=== PATIENT | male | born 1965 | race Caucasian/White ===

== ENCOUNTER 2016-12-19 10:40 | Emergency (ER) | payer OTHER ==
[2016-12-19] MEDS ORDERED: MORPHINE SULFATE 4 MG/ML SYRINGE IM STA (12:21)
--- NOTE | 2016-12-19 12:36 | XR ---
EXAM TYPE: LUMBAR SPINE X RAY SERIES COMPARISON: None HISTORY: Lower back pain FINDINGS: Alignment is anatomic. The pedicles are intact. The transverse processes are intact. There is no s pondylolysis or spondylolisthesis. Hypertrophic spurs are seen at multiple levels. IMPRESSION: 1. Hypertrophic changes and facet arthropathy L4-S1. Consider MRI follow-up.
--- NOTE | 2016-12-19 12:50 | ED ---
General Adult HPI - General Chief complaint: Back Pain/Injury Stated complaint: back injury - [facility] Time Seen by Provider: 12/19/16 11:58 Source: patient, RN notes reviewed Mode of arrival: ambulatory - History of Present Illness Initial comments: Patient is a 51-year-old male with significant past medical history for low back pain, who presents emergency room today with chief complaint of increased lower back pain after an injury at work 2 days ago. He does admit that he was moving a fridge over threshold felt a pop in his lower back. He does admit that he's had some pain radiate down the left leg. He states goes down to the mid calf area. Patient denies any bowel or bladder incontinence or retention. Denies any saddle anesthesia. Does admit the pain is worse with movements. He states been using ibuprofen at home is also had one Lonsdale and with little relief of the symptoms. Patient denies any other complaints or symptoms at this time. Patient denies any recent fever, chills, shortness of breath, chest pain, abdominal pain, nausea or vomiting, numbness or tingling, dysuria or hematuria, constipation or diarrhea, headaches or visual changes, or any other complaints. - Related Data Home Medications Medication Instructions Recorded Confirmed Ibuprofen [Motrin] 800 mg PO TID PRN 12/19/16 12/19/16 Lisinopril [Zestril] 10 mg PO DAILY 12/19/16 12/19/16 Lisinopril [Zestril] 20 mg PO DAILY 12/19/16 12/19/16 Lonsdale (Unknown Dose) 1 tab PO TID PRN 12/19/16 12/19/16 Previous Rx's Medication Instructions Recorded Cyclobenzaprine [Flexeril] 10 mg PO TID #20 tab 12/19/16 Dexamethasone 0.75 mg PO DIRECTED #12 tablet 12/19/16 Hydrocodone/Acetaminophen [Lonsdale 1 each PO Q6HR PRN #20 tab 12/19/16 5-325] Ibuprofen [Motrin] 800 mg PO Q6HR PRN #30 tab 12/19/16 Allergies Allergy/AdvReac Type Severity Reaction Status Date / Time tide detergent Allergy Unknown Uncoded 12/19/16 11:03 Review of Systems ROS Statement: Those systems with pertinent positive or pertinent negative responses have been documented in the HPI. ROS Other: All systems not noted in ROS Statement are negative. Past Medical History Additional Past Medical History / Comment(s): pt states he had simialr back pain in 2012 and was treated by Dr Donohue. History of Any Multi-Drug Resistant Organisms: None Reported Additional Past Surgical History / Comment(s): kidney stones removed. Past Psychological History: No Psychological Hx Reported Smoking Status: Current every day smoker Past Alcohol Use History: None Reported Past Drug Use History: Marijuana General Exam - General Exam Comments Initial Comments: General: The patient is awake and alert, in no distress, and does not appear acutely ill. Eye: Pupils are equal, round and reactive to light, extra-ocular movements are intact. No nystagmus. There is normal conjunctiva bilaterally. No signs of icterus. Ears, nose, mouth and throat: There are moist mucous membranes and no oral lesions. Neck: The neck is supple, there is no tenderness or JVD. Cardiovascular: There is a regular rate and rhythm. No murmur, rub or gallop is appreciated. Respiratory: Lungs are clear to auscultation, respirations are non-labored, breath sounds are equal. No wheezes, stridor, rales, or rhonchi. Musculoskeletal: Normal appearance of his back. No step-offs deformity is appreciated thoracic or lumbar spine. Mild tenderness beginning at L3 down to L5 of the lumbar spine. Increased paravertebral tenderness on the left side. Strength 5/5. Sensation intact. Pulses equal bilaterally 2+. Neurological: A&O x 3. CN II-XII intact, There are no obvious motor or sensory deficits. Coordination appears grossly intact. Speech is normal. Skin: Skin is warm and dry and no rashes or lesions are noted. Psychiatric: Cooperative, appropriate mood & affect, normal judgment. Course Vital Signs 12/19/16 10:56 Temperature 97 F L Pulse Rate 105 H Respiratory 20 Rate Blood Pressure 131/75 O2 Sat by Pulse 100 Oximetry Medical Decision Making - Medical Decision Making X-ray reviewed shows no acute fracture or dislocation. Results were discussed with the patient. Patient is advised to follow-up with the family doctor for further evaluation possible MRI of his back. Patient will be given pain medication along with muscle laxer and steroid Dosepak for her symptoms. Advised return if any symptoms increase or worsen or for any other concerns. Disposition Clinical Impression: Acute low back pain Disposition: HOME SELF-CARE Condition: Good Instructions: Acute Low Back Pain (ED) Additional Instructions: Please follow-up the family doctor over the next 2-5 days. Please discuss options of MRI. Please use medications as prescribed. Be aware that they may make you drowsy. Please return here to the emergency room if any symptoms increase or worsen or for any other concerns. Prescriptions: Cyclobenzaprine [Flexeril] 10 mg PO TID #20 tab Dexamethasone 0.75 mg PO DIRECTED #12 tablet Hydrocodone/Acetaminophen [Lonsdale 5-325] 1 each PO Q6HR PRN #20 tab PRN Reason: Pain Ibuprofen [Motrin] 800 mg PO Q6HR PRN #30 tab PRN Reason: Pain Time of Disposition: 12:49
[2016-12-19 13:13] VITALS: BP 146/88; PULSE 101; RESP 18; TEMP 98.7
== END 2016-12-19 13:25 | disposition home or self-care (01) ==
LOC: EC 10:40
DX: M54.5 Low back pain (principal); X50.0XXA Overexertion from strenuous movement or load, initial encounter; Y99.0 Civilian activity done for income or pay; Z79.899 Other long term (current) drug therapy; Z91.048 Other nonmedicinal substance allergy status; F17.200 Nicotine dependence, unspecified, uncomplicated
CPT/HCPCS: 72100; 96372; 99283; J2270

== ENCOUNTER → 2017-01-09 | Outpatient (CLI) | payer MEDICAID, OTHER ==
--- NOTE | 2017-01-09 16:45 | US ---
EXAMINATION TYPE: US kidneys/renal and bladder DATE OF EXAM: 01/09/2017 4:30 PM COMPARISON: NONE CLINICAL HISTORY: R33.9 Urine Retention. Back injury 12/13/2016 then noted hematuria; prior renal sto yoan left renal with surgery for removal of them. EXAM MEASUREMENTS: Right Kidney: 12.9 x 7.1 x 5.7 cm Left Kidney: 13.8 x 5.4 x 7.2 cm Post Void Residual Volume: 0 ml Findings: Right Kidney: couple of renal cysts noted with largest at lower cortex = 1.3 x1.3 x 1.3cm; mid pole r enal calcification = 0.4 x 0.4 x 0.2cm Left Kidney: No hydronephrosis or masses seen Bladder: wnl Bilateral Jets seen: yes Normal Post Void Residual: Yes IMPRESSION: 1. Nonobstructing renal calculus right kidney. 2. Cystic changes right kidney.
== END | disposition home or self-care (01) ==
LOC: RADUSWWP 16:00
PROVIDERS: ATTEND Family Medicine
DX: N20.0 Calculus of kidney (principal); N28.1 Cyst of kidney, acquired
CPT/HCPCS: 76770

== ENCOUNTER → 2017-01-31 | Outpatient (CLI) | payer MEDICAID ==
[2017-01-31 18:24] LABS: Blood Urea Nitrogen 13 mg/dL (9-20); Non-African American GFR(MDRD) >60 (>60 ml/min/1.73 sqM)
--- NOTE | 2017-02-01 08:28 | CT ---
EXAMINATION TYPE: CT urogram wo/w con DATE OF EXAM: 01/31/2017 7:31 PM COMPARISON: Renal ultrasound January 09, 2017. HISTORY: PT states of hematuria, left side abd pain, and difficulty urinating. CT DLP: 3572 mGycm, Automated Exposure Control for Dose Reduction was Utilized. CONTRAST: CT scan of the abdomen and pelvis is performed without oral and without and with IV Contrast, patient injected with 100 mL of Omnipaque 300. Urogram protocol with Three-D reconstructed images created on independent workstation and reviewed. FINDINGS: KUB: Noncontrast images show 2 renal calculi in the lower pole right kidney on coronal images 107 and 92 respectively, latter being larger measuring 5 mm on long axis. No left-sided renal calculi are se en. Postcontrast images show symmetric cortical medullary uptake and excretion from both kidneys with out evidence of hydronephrosis bilaterally. There are 2-3 simple appearing cysts scattered throughout the right kidney. Largest measures 1.7 cm on long axis on image 106 series 10. No suspicious solid o r cystic mass is identified in either kidney. There is satisfactory opacification of bilateral ureters on delayed images though there is some delay in left ureter opacification. There is asymmetric mild left-sided hydroureter with mild surrounding perinephric fat stranding. In the distal left ureter there is more focal hyperdensity measuring 4 mm on axial image 76 could reflect incomplete contrast opacification of the ureter but focal calculus is felt more likely, length of stone is 7 mm on coronal image 105. Some delayed contrast visualization of the left ureter is noted favoring obstructing calculus. Mild fat stranding along course of the pro ximal to mid ureter is presumed product of obstructing stone, infection felt less likely but should b e excluded clinically. Urinary bladder shows satisfactory distention and midline of pelvis without ab normal intraluminal mass or wall thickening seen. LUNG BASES: No significant abnormality is appreciated. LIVER/GB: A noncontrast images liver is diffusely low dense consistent with fatty infiltration PANCREAS: No significant abnormality is seen. SPLEEN: No significant abnormality is seen. ADRENALS: No significant abnormality is seen. BOWEL: Normal-appearing appendix is seen from the cecum. PROSTATE/SEMINAL VESICLES: No gross abnormality seen. LYMPH NODES: No greater than 1cm abdominal or pelvic lymph nodes are appreciated. There are prominen t but subcentimeter retroperitoneal lymph nodes. OSSEOUS STRUCTURES: Some multilevel spurring in the thoracolumbar spine is present. OTHER: No significant additional abnormality is seen. IMPRESSION: Nonobstructing right-sided renal calculi and simple appearing cyst right kidney are confi rmed. There is strongly suspected 7 mm calculus distal left ureter not causing delayed excretion but believed causing asymmetric mild left-sided hydroureter as detailed above.
== END ==
LOC: RADCTMAIN 17:43
PROVIDERS: ATTEND Urology
DX: N20.0 Calculus of kidney (principal)
CPT/HCPCS: 82565; 84520; 74178; 36415; 74400; Q9967

== ENCOUNTER → 2017-02-15 | Outpatient (CLI) | payer MEDICAID ==
[2017-02-15 16:38] LABS: EKG EKG PERFORMED
[2017-02-15 17:00] LABS: Basophils # (A) 0.1 k/uL (0-0.2); Basophils % (A) 1 %; CH 30.9; CHCM 34.5; Eosinophils # (A) 0.5 k/uL (0-0.7); Eosinophils % (A) 3 %; HCT 54.1 % (39.0-53.0); HDW 2.78; HGB 18.4 gm/dL (13.0-17.5); Luc # (Auto) 0.29; Luc % (Auto) 2; Lymphocytes # (A) 2.7 k/uL (1.0-4.8); Lymphocytes % (A) 20 %; MCH 30.6 pg (25.0-35.0); MCV 90.1 fL (80.0-100.0); Mean Platelet Volume 7.7; Monocytes # (A) 0.8 k/uL (0-1.0); Monocytes % (A) 6 %; Neutrophils # (A) 9.1 k/uL (1.3-7.7); Neutrophils % (A) 67 %; RDW 13.2 % (11.5-15.5); WBC 13.5 k/uL (3.8-10.6); WBC (Perox) 13.97
[2017-02-15 17:10] LABS: INR 1.1 (<1.1); Partial Thromboplastin Time 23.5 sec (22.0-30.0); Prothrombin Time 10.8 sec (9.0-12.0)
[2017-02-15 17:14] LABS: Anion Gap 6 mmol/L; Blood Urea Nitrogen 23 mg/dL (9-20); Calcium 8.9 mg/dL (8.4-10.2); Carbon Dioxide 31 mmol/L (22-30); Chloride 103 mmol/L (98-107); Glucose 111 mg/dL (74-99); Non-African American GFR(MDRD) >60 (>60 ml/min/1.73 sqM); Potassium 4.3 mmol/L (3.5-5.1); Sodium 140 mmol/L (137-145)
== END ==
LOC: LABPAT 16:30
PROVIDERS: ATTEND Physician Assistant
DX: Z01.810 Encounter for preprocedural cardiovascular examination (principal); Z01.812 Encounter for preprocedural laboratory examination; N20.1 Calculus of ureter; R35.0 Frequency of micturition; Z79.899 Other long term (current) drug therapy; Z79.01 Long term (current) use of anticoagulants; I10 Essential (primary) hypertension
CPT/HCPCS: 80048; 85025; 85610; 85730; 87086; 93005

== ENCOUNTER 2017-02-22 06:34 | Day surgery (SDC) | payer MEDICAID ==
[2017-02-17 17:50] VITALS: BMI 34.7
[~2017-02-22 06:34] MED LIST: DEXAMETHASONE SOD PHOSPHATE 10 MG/ML 1 ML VIAL IV ONE; GENTAMICIN 160 MG in SODIUM CHLORIDE 0.9% 100 ML IVPB ONE; HYDROmorphone 1 MG/ML 1 ML SYRINGE IVP PRN; MIDAZOLAM 2 MG/2 ML VIAL IV PRN; ONDANSETRON 4 MG/2 ML VIAL IVP ONE; SCOPOLAMINE 1.5MG/72HR PATCH TRANSDERM ONE; ceFAZolin 1,000 MG in DEXTROSE/WATER 1 50ML.BAG IV ONE
[2017-02-22] MEDS: LACTATED RINGERS 1,000 ML IV SCH ×3 (07:24→11:10)
[2017-02-22] MEDS ORDERED: LIDOCAINE 1% 20 ML VIAL (10MG/ML) FOR IV START INTRADERMA ONE (07:25)
[2017-02-22] MEDS ORDERED: fentaNYL (PF) 50 MCG/ML 2 ML AMP ONE (07:55)
[2017-02-22] MEDS ORDERED: MIDAZOLAM 2 MG/2 ML VIAL ONE (07:55)
[2017-02-22] MEDS ORDERED: PROPOFOL 10 MG/ML 20 ML VIAL IV ONE (07:55)
[2017-02-22] MEDS ORDERED: KETOROLAC 30 MG/ML 1 ML VIAL ONE (07:55)
[2017-02-22] MEDS ORDERED: PHENYLEPHRINE-0.9% NACL SYG 1 MG/10 ML SYRINGE ONE (07:55)
[2017-02-22] MEDS ORDERED: LIDOCAINE 1% INJ 10MG/ML (20 ML MDV) ONE (07:55)
[2017-02-22] MEDS ORDERED: SUCCINYLCHOLINE CHLORIDE 100 MG/5 ML SYR IV ONE (07:55)
[2017-02-22] MEDS ORDERED: IOHEXOL 350 MG/ML 50ML BOTTLE MISCELLANE ONE ×2 (08:17)
--- NOTE | 2017-02-22 08:41 | P.OP ---
Date of Procedure: 02/22/17 Preoperative Diagnosis: Left ureteral stone Postoperative Diagnosis: Left ureteral stone Procedure(s) Performed: Cystoscopy, left retrograde pyelogram, left ureteroscopy with laser lithotripsy Anesthesia: KATHLEEN Surgeon: Andrew Beltrán Estimated Blood Loss (ml): 0 Pathology: other (Stone) Condition: stable Disposition: PACU Indications for Procedure: The patient is a 51-year-old gentleman who is been trying to pass a left ureteral stone for several weeks. He has continued pain. He has a 7 x 4 mm distal ureteral stone. Description of Procedure: Patient is brought to the operating suite and given a general endotracheal anesthesia on the operating table. He's placed in lithotomy position with a sterile prep and drape. Cystoscopy a Foroblique lens and 22-Uzbek sheath is performed. The anterior urethra is normal. The prostate urethra shows minimal obstruction. The bladder is inspected and is completely normal. The left ureteral orifice is identified and within a cone-tipped catheter a left retrograde pyelogram is performed to find the stone proximal to the intramural tunnel. An pass a 7-Uzbek mini ureteroscope up to the stone. With the 365 probe I break the stone into tiny left pieces such that I can flushed out of the ureter. I reinspected the ureter up to the iliac vessels and there is no remaining stone. There is not enough edema to leave a stent. The ureteroscope was removed. I irrigate the bladder out of stone debris and sent to pathology. The bladder strain. The patient's awakened and returned recovery room good condition. He'll be discharged home upon recovery. Blood loss is minimal
--- NOTE | 2017-02-22 08:50 | FL ---
EXAMINATION TYPE: FL urography retrograde DATE OF EXAM: 02/22/2017 8:44 AM COMPARISON: NONE HISTORY: Fluoroscopy time TECHNIQUE: Fluoroscopy. FINDINGS: Fluoroscopic guidance was provided during procedure. A total of 14 seconds of fluoroscopi c time was utilized during the procedure and 0 spot images was acquired. IMPRESSION: As Above.
[2017-02-22 08:54] VITALS: TEMP 98
[2017-02-22] MEDS ORDERED: HYDROcodone/APAP 5-325MG 1 EACH TAB PO ONE ×2 (10:00→10:30)
[2017-02-22 11:06] VITALS: RESP 18
[2017-02-22 11:11] VITALS: BP 147/83; PULSE 80
== END 2017-02-22 11:22 | disposition home or self-care (01) ==
LOC: OR 06:34
PROVIDERS: ATTEND Urology
DX: N20.1 Calculus of ureter (principal); I10 Essential (primary) hypertension; F17.200 Nicotine dependence, unspecified, uncomplicated; Z79.891 Long term (current) use of opiate analgesic; Z88.8 Allergy status to other drugs, medicaments and biological substances
CPT/HCPCS: 82365; 74420; 52353; C1758; J2250; J1100; J2405; J2001; J3010; J1885; J1580; J0690; J2370; J0330; J2704; Q9967

== ENCOUNTER → 2017-04-20 | Outpatient (CLI) | payer MEDICAID ==
--- NOTE | 2017-04-21 11:15 | ECHOF ---
Referral Reason:Edema R60.9 MEASUREMENTS -------- HEIGHT: 175.3 cm WEIGHT: 111.1 kg BP: IVSd: 1.6 cm (0.6 - 1.1) LVIDd: 3.0 cm (3.9 - 5.3) LVPWd: 1.5 cm (0.6 - 1.1) IVSs: 2.0 cm LVIDs: 2.1 cm LVPWs: 1.9 cm Ao Diam: 3.0 cm (2.0 - 3.7) AV Cusp: 1.9 cm (1.5 - 2.6) LA Diam: 3.9 cm (2.7 - 3.8) MV EXCURSION: 15.271 mm (> 18.000) MV EF SLOPE: 54 mm/s (70 - 150) EPSS: 0.2 cm MV E Campbell: 0.67 m/s MV DecT: 158 ms MV A Campbell: 0.84 m/s MV E/A Ratio: 0.80 RAP: 5.00 mmHg RVSP: 12.70 mmHg FINDINGS -------- Sinus rhythm. This was a technically good study. There is moderate concentric left ventricular hypertrophy. Overall left ventricular systolic function is normal with, an EF between 55 - 60 %. The right ventricle is normal in size and function. The left atrium is normal in size. The right atrium is normal in size. Aortic valve is trileaflet and is mildly thickened. The mitral valve leaflets are mildly thickened. There is trace mitral regurgitation. Trace tricuspid regurgitation present. The right ventricular systolic pressure, as measured by Doppler, is 12.70mmHg. Pulmonic valve appears structurally normal. The aortic root size is normal. The pericardium is normal. CONCLUSIONS -------- 1. Sinus rhythm. 2. There is trace mitral regurgitation. 3. Trace tricuspid regurgitation present. 4. The right ventricular systolic pressure, as measured by Doppler, is 12.70mmHg. 5. Pulmonic valve appears structurally normal. 6. The aortic root size is normal. 7. The pericardium is normal. 8. This was a technically good study. 9. There is moderate concentric left ventricular hypertrophy. 10. Overall left ventricular systolic function is normal with, an EF between 55 - 60 %. 11. The right ventricle is normal in size and function. 12. The left atrium is normal in size. 13. The right atrium is normal in size. 14. Aortic valve is trileaflet and is mildly thickened. 15. The mitral valve leaflets are mildly thickened. ADULT CARE MANAGER: Micheline De La Rosa RDCS
== END | disposition home or self-care (01) ==
LOC: RADECHMAIN 14:54
PROVIDERS: ATTEND Nurse Practitioner Family
DX: I08.3 Combined rheumatic disorders of mitral, aortic and tricuspid valves (principal)
CPT/HCPCS: 93306

== ENCOUNTER → 2017-05-19 | Outpatient (CLI) | payer MEDICAID ==
[2017-05-19 10:37] LABS: ALT 26 U/L (21-72); AST 25 U/L (17-59); Alkaline Phosphatase 88 U/L (38-126); Blood Urea Nitrogen 20 mg/dL (9-20); Carbon Dioxide 28 mmol/L (22-30); Glucose 114 mg/dL (74-99); Non-African American GFR(MDRD) >60 (>60 ml/min/1.73 sqM); Potassium 4.1 mmol/L (3.5-5.1); Sodium 138 mmol/L (137-145); Total Bilirubin 0.4 mg/dL (0.2-1.3); Total Protein 4.4 g/dL (6.3-8.2)
[2017-05-19 10:51] LABS: Anion Gap 2 mmol/L; Chloride 108 mmol/L (98-107)
== END | disposition home or self-care (01) ==
LOC: LABWHC1 09:14
PROVIDERS: ATTEND Internal Medicine Interventional Cardiology
DX: R06.09 Other forms of dyspnea (principal)
CPT/HCPCS: 36415; 80053; 83880

== ENCOUNTER → 2017-06-21 | Outpatient (CLI) | payer MEDICAID ==
[2017-06-21 09:25] LABS: Anion Gap -2 mmol/L; Blood Urea Nitrogen 25 mg/dL (9-20); Carbon Dioxide 29 mmol/L (22-30); Chloride 109 mmol/L (98-107); Non-African American GFR(MDRD) 55 (>60 ml/min/1.73 sqM); Potassium 4.7 mmol/L (3.5-5.1); Sodium 136 mmol/L (137-145)
== END | disposition home or self-care (01) ==
LOC: LABWHC1 08:24
PROVIDERS: ATTEND Internal Medicine Interventional Cardiology
DX: I10 Essential (primary) hypertension (principal)
CPT/HCPCS: 36415; 80051; 82565; 84520

== ENCOUNTER → 2017-07-17 | Outpatient (CLI) | payer MEDICAID ==
[2017-07-17 10:34] LABS: Anion Gap 0 mmol/L; Blood Urea Nitrogen 17 mg/dL (9-20); Carbon Dioxide 26 mmol/L (22-30); Chloride 110 mmol/L (98-107); Non-African American GFR(MDRD) 57 (>60 ml/min/1.73 sqM); Potassium 4.4 mmol/L (3.5-5.1); Sodium 136 mmol/L (137-145)
== END | disposition home or self-care (01) ==
LOC: LABWHC1 09:05
PROVIDERS: ATTEND Internal Medicine Interventional Cardiology
DX: I10 Essential (primary) hypertension (principal)
CPT/HCPCS: 36415; 80051; 82565; 84520

== ENCOUNTER → 2017-10-02 | Outpatient (CLI) | payer MEDICAID ==
[2017-10-02 09:16] LABS: Basophils # (A) 0.1 k/uL (0-0.2); Basophils % (A) 1 %; CH 30.3; Eosinophils # (A) 0.4 k/uL (0-0.7); Eosinophils % (A) 3 %; HCT 49.2 % (39.0-53.0); HDW 2.63; HGB 15.4 gm/dL (13.0-17.5); Luc # (Auto) 0.11; Luc % (Auto) 1; Lymphocytes % (A) 17 %; MCH 29.9 pg (25.0-35.0); MCHC 31.3 g/dL (31.0-37.0); MCV 95.6 fL (80.0-100.0); Mean Platelet Volume 7.6; Monocytes # (A) 0.6 k/uL (0-1.0); Monocytes % (A) 5 %; Neutrophils # (A) 8.7 k/uL (1.3-7.7); Neutrophils % (A) 73 %; RBC 5.15 m/uL (4.30-5.90); RDW 15.1 % (11.5-15.5); WBC 11.9 k/uL (3.8-10.6); WBC (Perox) 12.08
[2017-10-02 09:21] LABS: Partial Thromboplastin Time 24.3 sec (22.0-30.0)
[2017-10-02 09:36] LABS: Anion Gap -2 mmol/L; Blood Urea Nitrogen 20 mg/dL (9-20); Carbon Dioxide 27 mmol/L (22-30); Chloride 113 mmol/L (98-107); Non-African American GFR(MDRD) 51 (>60 ml/min/1.73 sqM); Potassium 4.2 mmol/L (3.5-5.1); Sodium 138 mmol/L (137-145)
== END | disposition home or self-care (01) ==
LOC: LABWHC1 08:28
PROVIDERS: ATTEND Internal Medicine Nephrology
DX: N18.3 Chronic kidney disease, stage 3 (moderate) (principal)
CPT/HCPCS: 36415; 80051; 82565; 84520; 85025; 85610; 85730; 86850; 86900; 86901

== ENCOUNTER 2017-10-03 07:52 | Day surgery (SDC) | payer MEDICAID ==
[2017-10-03] MEDS ORDERED: HYDROmorphone 1 MG/ML 1 ML SYRINGE IVP PRN (08:02)
[2017-10-03 08:45] VITALS: RESP 16; TEMP 98
--- NOTE | 2017-10-03 10:08 | CT ---
DATE OF EXAM: 10/03/2017 COMPARISON: NONE CT DLP: 1053 mGycm HISTORY: Renal failure, N18.3 PROCEDURE: Maximal barrier technique was utilized. After informed consent, the skin overlying a suit able path to the right kidney was localized using CT guidance, the skin was prepped and draped. Lido nyasia was used for local anesthesia. A skin christine made with a scalpel. Using CT guidance, a 17-gauge needle was advanced into in position at the lateral and inferior cortex of the right kidney where co axial placement of an 18-gauge needle was used and core biopsy obtained. Two passes made in total. Hemostasis was achieved. There was no immediate complication and patient remained in stable conditio n. Specimen submitted to Pathology. IMPRESSION: Status post CT guided core biopsy of right renal cortex, pathology pending. This procedu re performed by the undersigned.
[2017-10-03 13:37] VITALS: BP 129/77; PULSE 84
== END 2017-10-03 13:38 | disposition home or self-care (01) ==
LOC: RADPROMAIN 07:52
PROVIDERS: ATTEND Internal Medicine Nephrology
DX: I12.9 Hypertensive chronic kidney disease with stage 1 through stage 4 chronic kidney disease, or unspecified chronic kidney disease (principal); N18.3 Chronic kidney disease, stage 3 (moderate); N17.9 Acute kidney failure, unspecified; E78.5 Hyperlipidemia, unspecified
CPT/HCPCS: 36415; 77012; 86850; 86900; 86901

== ENCOUNTER → 2017-11-29 | Outpatient (CLI) | payer SELFPAY ==
--- NOTE | 2017-11-29 15:00 | US ---
EXAMINATION TYPE: US venous doppler duplex LE DATE OF EXAM: 11/29/2017 2:47 PM COMPARISON: NONE CLINICAL HISTORY: M79.661 Pain Right leg, M79.662 Pain Left Leg. Bilateral leg swelling SIDE PERFORMED: Bilateral TECHNIQUE: The lower extremity deep venous system is examined utilizing real time linear array sonog marlyn with graded compression, doppler sonography and color-flow sonography. VESSELS IMAGED: External Iliac Vein (EIV) Common Femoral Vein Deep Femoral Vein Greater Saphenous Vein * Femoral Vein Popliteal Vein Small Saphenous Vein * Proximal Calf Veins (* superficial vessels) Grayscale, color doppler, spectral doppler imaging performed of the deep veins of the lower extremiti es. There is normal flow, compressibility, vascular waveforms. Right Leg: Appears negative for DVT Left Leg: Appears negative for DVT IMPRESSION: No evidence for DVT.
== END | disposition home or self-care (01) ==
LOC: RADUSWWP 14:10
PROVIDERS: ATTEND Internal Medicine Interventional Cardiology
DX: M79.662 Pain in left lower leg (principal); M79.661 Pain in right lower leg
CPT/HCPCS: 93970

== ENCOUNTER → 2018-02-26 | Outpatient (CLI) | payer SELFPAY ==
[2018-02-26 09:53] LABS: Albumin 2.2 g/dL (3.5-5.0); Calcium 8.8 mg/dL (8.4-10.2); Potassium 4.7 mmol/L (3.5-5.1); Total Bilirubin 0.2 mg/dL (0.2-1.3); Total Protein 4.6 g/dL (6.3-8.2)
== END | disposition home or self-care (01) ==
LOC: LABWHC1 09:08
PROVIDERS: ATTEND Internal Medicine Interventional Cardiology
DX: I10 Essential (primary) hypertension (principal)
CPT/HCPCS: 36415; 80053

== ENCOUNTER → 2023-04-22 | Outpatient (CLI) | payer BC ==
--- NOTE | 2023-04-23 22:16 | PE ---
EXAMINATION TYPE: PET CT fusion skull to thigh DATE OF EXAM: 04/22/2023 CLINICAL INDICATION:Male, 57 years old with history of R91.1; TECHNIQUE: Following the intravenous administration of 13.4 mCi of F-18 FDG, whole body images are performed from the skull base to the midthigh. Images are reviewed on the computer in the coronal, a xial, and sagittal planes. Reconstructed rotating images are created on independent workstation and reviewed on the computer. A non-contrast CT is performed in conjunction with the PET scan. Glucose level 107 mg/dL COMPARISON: CT 01/31/2017, PET/CT None, FINDINGS: Mediastinal SUV mean is 1.1. Hepatic parenchyma SUV mean is 1.7. SKULL BASE AND NECK: No suspicious radiotracer activity. CHEST, MEDIASTINUM, AND HILAR REGION: Scattered pulmonary nodules the largest of which are * Right upper lobe 11 x 8 mm pulmonary nodule Max SUV 1.8 * Right lower lobe medial 6 mm nodule Max SUV 2.0 * Left upper lobe peripheral nodular density measuring 9 x 3 mm Max SUV 0.94 * More anteriorly in left upper lobe measuring 5 mm Max SUV 1.0. * Left lower lobe pulmonary nodule Max SUV 0.6. Other scattered too small to characterize nodules are present throughout the lungs suggesting as well as new from 2017 air cysts with mild thickening of the delcid and emphysema changes. ABDOMEN AND PELVIS: Eccentric right rectal wall thickening suggested however poorly evaluated on this exam without rectal contrast extends max SUV 25.6 with perirectal lymph node measuring 5 mm series 3 image 233a as well as image 231 in the presacral lymph nodes are also present OSSEOUS STRUCTURES: No suspicious radiotracer activity. OTHER CT: Scattered atherosclerosis of the arterial vasculature. Right nonobstructing renal calculi m easuring up to 5 mm. No hydronephrosis. Suspected prior postbiopsy changes. Large stool burden throug hout the colon. Fat-containing umbilical hernia. IMPRESSION: 1. Right upper lobe pulmonary nodule measuring up to 11 mm with spiculated borders and increased FDG activity concerning for malignancy. There are other scattered pulmonary nodules and new cystic avelar es throughout the lungs which were not seen on 2017 exam. One of the right lower lobe medial pulmonar y nodules measuring 6 cm also has increased FDG activity and is suspicious. Given the multiplicity of new pulmonary nodules, findings could represent metastatic disease possibly secondary to #2. 2. There is questionable rectal wall thickening on the right with increased metabolic activity. Whil e this may be feces and physiologic uptake within the bowel wall if not recently performed colonoscop y and/or CT with rectal contrast is recommended. Given findings in #1 these are suspicious especially since there are prominent perirectal lymph nodes and presacral lymph nodes.
== END | disposition home or self-care (01) ==
LOC: RADPETMAIN 11:25
PROVIDERS: ATTEND Internal Medicine
DX: R91.8 Other nonspecific abnormal finding of lung field (principal)
CPT/HCPCS: 78815; A9552

== ENCOUNTER → 2023-08-07 | Outpatient (CLI) | payer BC ==
[2023-08-07 14:34] LABS: African American GFR (CKD) >90 (>60 ml/min/1.73 sqM); Blood Urea Nitrogen 23 mg/dL (9-20); Non-African American GFR(CKD) 80 (>60 ml/min/1.73 sqM)
--- NOTE | 2023-08-07 16:47 | CT ---
EXAMINATION TYPE: CT chest w con CT DLP: 390.1 mGycm, Automated exposure control for dose reduction was used. DATE OF EXAM: 08/07/2023 3:17 PM COMPARISON: Pet/CT 04/22/2023 CLINICAL INDICATION:Male, 57 years old with history of R91.1 LUNG NODULE; TECHNIQUE: Multiple axial images were obtained through the chest. Sagittal and coronal reformats were created for review. Contrast used:100ml mL of Isovue 300 with IV Contrast (None if empty) Oral contrast used: (None if empty) FINDINGS: LUNGS/ PLEURA: * Right upper lung 13 mm nodule with mild FDG activity on prior PET/CT may be fractionally larger pr eviously 11 mm. Series 3 image 21 * The medial right lower lobe pulmonary nodule measuring 9 mm previously 6mm series 3 image 34 * Cystic changes throughout the lungs remains some of which have increased in size. Including left l ower lobe superior segment 18 mm cyst previously 10. Increase in size of left lower lobe pulmonary no dule now measuring 8 mm previously 6 cm. Series 3 image 44 * Left upper lung nodule along the pleura measures enlarged measuring 11 mm previously 7 mm. Series 3 image 27. * Left upper lung 7 mm pulmonary nodule previously 5 mm series 3 image 24. No focal consolidation, pneumothorax or pleural effusion. AIRWAY: Patent and unremarkable. HEART: Size within normal limits. Moderate coronary artery calcifications MEDIASTINUM: No gross evidence of adenopathy. VASCULATURE: No aortic aneurysm. MUSCULOSKELETAL: No acute osseous abnormalities SOFT TISSUES/LYMPH NODES: Unremarkable. LOWER NECK: No significant findings. UPPER ABDOMEN: No significant findings. IMPRESSION: 1. Fractional increase in size of the pulmonary nodules the most pronounced is the right upper lobe pulmonary nodule with spiculated. This is FDG avid on prior and given its increase in size finding leroy ggestive of malignancy. Scattered facet lung changes have increased in size of the lungs. These findi ngs are favored to be secondary to likely colorectal cancer seen on prior PET/CT.
== END | disposition home or self-care (01) ==
LOC: RADCTMAIN 13:43
PROVIDERS: ATTEND Internal Medicine
DX: R91.8 Other nonspecific abnormal finding of lung field (principal)
CPT/HCPCS: 82565; 84520; 71260; 36415; Q9967

== ENCOUNTER 2023-10-11 10:35 | Day surgery (SDC) | payer BC ==
[2023-10-10 11:52] VITALS: BMI 24.3
[~2023-10-11 10:35] MED LIST changes: -DEXAMETHASONE SOD PHOSPHATE 10 MG/ML 1 ML VIAL IV ONE; +DEXAMETHASONE SOD PHOSPHATE 4 MG/ML 1 ML VIAL IV ONE; -GENTAMICIN 160 MG in SODIUM CHLORIDE 0.9% 100 ML IVPB ONE; +HYDROmorphone 0.5 MG/0.5 ML SYRINGE IVP PRN; -HYDROmorphone 1 MG/ML 1 ML SYRINGE IVP PRN; +LACTATED RINGERS 1,000 ML IV SCH; +LIDOCAINE 1% (10MG/ML) FOR IV START INTRADERMA PRN; -SCOPOLAMINE 1.5MG/72HR PATCH TRANSDERM ONE; -ceFAZolin 1,000 MG in DEXTROSE/WATER 1 50ML.BAG IV ONE
[2023-10-11 11:47] VITALS: RESP 16
[2023-10-11] MEDS ORDERED: LIDOCAINE 1% INJ 10MG/ML (20 ML MDV) ONE (12:13)
[2023-10-11] MEDS ORDERED: MIDAZOLAM 2 MG/2 ML VIAL ONE (12:13)
[2023-10-11] MEDS ORDERED: PROPOFOL 10 MG/ML 20 ML VIAL IV ONE (12:13)
[2023-10-11] MEDS ORDERED: NEOSTIGMINE 1 MG/ML 10 ML VIAL ONE (12:13)
[2023-10-11] MEDS ORDERED: fentaNYL (PF) 50 MCG/ML 2 ML AMP ONE (12:13)
[2023-10-11] MEDS ORDERED: ROCURONIUM 10 MG/ML (5 ML VIAL) IV ONE (12:13)
[2023-10-11] MEDS ORDERED: GLYCOPYRROLATE 0.2 MG/ML 2 ML VIAL ONE (12:13)
[2023-10-11] MEDS ORDERED: SUCCINYLCHOLINE CHLORIDE 200 MG/10 ML VIAL IV ONE (12:13)
--- NOTE | 2023-10-11 12:25 | CT ---
EXAMINATION TYPE: CT chest wo con CT DLP: 335 mGycm, Automated exposure control for dose reduction was used. DATE OF EXAM: 10/11/2023 12:07 PM COMPARISON: 08/07/2023, PET/CT 09/13/2023. CLINICAL INDICATION:Male, 58 years old with history of Ion bronchoscopy; [facility], TECHNIQUE: Multiple axial images were obtained through the chest. Sagittal and coronal reformats were created for review. Contrast used: mL of (None if empty) Oral contrast used: (None if empty) FINDINGS: LUNGS/ PLEURA: Interval increase in right upper lobe pulmonary nodule now measuring 13 x 13 mm series 4 image 99, previously 11 x 11 mm. Lateral upper lung pulmonary nodule measuring 10 mm x 6 mm is unc hanged. Left lower lobe pulmonary nodule which was predominantly cystic on prior now has more solid, with spi culations measuring 9 mm. Other scattered cystic nodules and solid appearing nodules are present throughout the lungs. AIRWAY: Patent and unremarkable. HEART: Size within normal limits. Mild to moderate coronary artery atherosclerosis. MEDIASTINUM: No gross evidence of adenopathy. VASCULATURE: No aortic aneurysm. MUSCULOSKELETAL: No acute osseous abnormalities SOFT TISSUES/LYMPH NODES: Unremarkable. LOWER NECK: No significant findings. UPPER ABDOMEN: No significant findings. IMPRESSION: Increasing right upper lung pulmonary nodule with spiculation as well as a more solid deisy earance of the left lower lung nodule. Scattered cystic nodules are seen throughout the lungs. Findin gs could represent infectious/inflammatory process with superimposed malignancy nontender excluded. A ttention to tissue diagnosis of the right upper lung pulmonary nodule.
--- NOTE | 2023-10-11 13:21 | P.PCN ---
Date of Procedure: 10/11/23 Operative Findings: Preoperative Diagnosis: Right upper lobe nodule, 11 mm Postoperative Diagnosis: Right upper lobe nodule, 11 mm Procedure(s) Performed: Flexible bronchoscopy Robotic-assisted bronchoscopy and addition to radial ultrasound evaluation of the pulmonary nodule Robotic-assisted transbronchial needle aspirate, transbronchial biopsies of the right upper lobe nodule in addition to a bronchioloalveolar lavage Anesthesia: KATHLEEN Surgeon: Jayde Mendoza Estimated Blood Loss (ml): 0 Pathology: other Condition: stable Disposition: same day Operative Findings: A physical exam was performed. Informed consent was obtained from the patient after explaining all the risks (pneumothorax, life threatening bleeding, infection and adverse effects due to medications), benefits and alternatives to the procedure which the patient appeared to understand and so stated. The patient was connected to the monitoring devices. General anesthesia was induced and the patient was intubated by anesthesia. A final timeout was performed and t he procedure confirmed by the attending staff bronchoscopist. The bronchoscope was inserted and the airway examined. The flexible bronchoscope was removed and the robotic bronchoscope was inserted. Registration was completed. I next guided the robotic bronchoscope using the navigation system into the right upper lobe anterior segment. Once in proper position, the bronchoscope was frozen. The radial EBUS probe was placed through the bronchoscope and confirmed abnormal u/s images vs normal lung. A needle was placed through the working channel and under fluoroscopic guidance, we sampled the area thought to have the mass twice. We then used a cloud biopsy pattern with ultrasound confirmation for 2 additional passes with the needle. U/S evaluation was then used to reconfirm location. Forceps were next introduced through working channel and extended the appropriate distance and 3 transbronchial biopsies were performed using fluoroscopic guidance. The u/s probe was then reinserted to confirm location. When confirmed this process was repeated for a total of 8-10 transbronchial biopsies. After reassessment with EBUS, a brush was placed through the extendable working channel for 1 pass with fluoroscopic guidance. U/S evaluation was then used to confirm location. 40ml of saline was then instilled into the area of the lesion. The robotic bronchoscope was removed and the airway inspected with a flexible bronchoscope and 10 ml of effluent from the BAL was collected. The aspirate was bloody and ultimately declotted and based on that, the sample was discarded. Flex. bronchoscope was inserted and regular suctioning was done. At the completion of the procedure, no residual secretions or bloody material within the airway. The bronchoscope was removed. The patient was extubated. FINDINGS: 1.The airways appeared normal 2 Successful navigation, ultrasonographic identification, and biopsies of right upper lobe pulmonary nodule 3.The the radial ultrasound view was (Concentric/Eccentric)}. RECOMMENDATIONS: Await pathology and cytology results The referring physician will be alerted to the results when available. The patient was advised to follow up with the referring physician with the biopsy results Patient will be called with results.
--- NOTE | 2023-10-11 13:59 | FL ---
EXAMINATION TYPE: FL bronchoscopy DATE OF EXAM: 10/11/2023 FLUOROSCOPY Right side ion bronch 2 min 25 sec fl 4.0346 mGycm2 DAP 2 image/s document/s the procedure.
[2023-10-11 14:16] VITALS: BP 134/85; PULSE 76; TEMP 97
--- NOTE | 2023-10-11 15:00 | XR ---
EXAMINATION TYPE: XR chest 1V DATE OF EXAM: 10/11/2023 COMPARISON: Correlation CT 10/11/2023 HISTORY: 58-year-old male status post ion bronchoscopy and right-sided biopsy. TECHNIQUE: Single frontal view of the chest is obtained. FINDINGS: Heart normal size. Aorta and pulmonary vasculature within normal limits. Scattered subtle underlying pulmonary nodules are redemonstrated. No appreciable pneumothorax on either side. No pleural effusion . IMPRESSION: Subtle underlying nodularity. No appreciable pneumothorax or pleural effusion.
== END 2023-10-11 15:09 | disposition home or self-care (01) ==
LOC: ORWHC2ENDO 10:35
PROVIDERS: ATTEND Internal Medicine Critical Care Medicine
DX: R91.1 Solitary pulmonary nodule (principal); R91.8 Other nonspecific abnormal finding of lung field; I10 Essential (primary) hypertension; F17.210 Nicotine dependence, cigarettes, uncomplicated; Z79.899 Other long term (current) drug therapy; Z98.890 Other specified postprocedural states
CPT/HCPCS: 87070; 87205; 87116; 87102; 87206; 71045; 71250; 31628; 31633; 31623; 31624; J2250; J0330; J1100; J2710; J2405; J2001; J3010; J2704; S2900; 88173; 88305; 88341; 88342

== ENCOUNTER → 2023-12-11 | Outpatient (CLI) | payer BC ==
--- NOTE | 2023-12-11 16:09 | US ---
EXAMINATION TYPE: US venous doppler duplex UE RT DATE OF EXAM: 12/11/2023 COMPARISON: NONE CLINICAL INDICATION: Male, 58 years old with history of R22.31 PAIN IN EXTREMITY; Patient has port fo r chemo. Patient has been having right neck and ear pain since 4 days. No hx of DVT. SIDE PERFORMED: Right Right Arm: Lease Out Man notes: Appears positive for DVT. Internal echoes seen in right IJV and right medial subcl arti vein. Color flow not seen in these vein segments. IJV does not compress. The remaining veins appear to compress and show color flow. IMPRESSION: Exam positive for occlusive DVT within the right IJ and lower right subclavian veins.
== END | disposition home or self-care (01) ==
LOC: RADUSWWP 15:34
PROVIDERS: ATTEND Internal Medicine Hematology & Oncology
DX: I82.C11 Acute embolism and thrombosis of right internal jugular vein (principal); R22.31 Localized swelling, mass and lump, right upper limb; I12.9 Hypertensive chronic kidney disease with stage 1 through stage 4 chronic kidney disease, or unspecified chronic kidney disease; N18.9 Chronic kidney disease, unspecified; M12.9 Arthropathy, unspecified

== ENCOUNTER 2024-05-07 17:29 | Observation (INO) | payer BC ==
[2024-05-07 19:21] LABS: Anisocytosis Slight; Basophils % (A) 0 %; Eosinophils % (A) 1 %; HGB 15.3 gm/dL (13.0-17.5); Lymphocytes # (A) 0.6 k/uL (1.0-4.8); Lymphocytes % (A) 11 %; MCH 31.8 pg (25.0-35.0); MCHC 33.2 g/dL (31.0-37.0); MCV 95.8 fL (80.0-100.0); Mean Platelet Volume 8.3; Monocytes # (A) 0.3 k/uL (0-1.0); Monocytes % (A) 6 %; Neutrophils # (A) 4.2 k/uL (1.3-7.7); Neutrophils % (A) 79 %; Platelet Count 265 k/uL (150-450); RDW 16.9 % (11.5-15.5); WBC 5.3 k/uL (3.8-10.6)
[2024-05-07 19:33] LABS: ALT 10 U/L (4-49); AST 24 U/L (17-59); African American GFR (CKD) 89 (>60 ml/min/1.73 sqM); Albumin 3.3 g/dL (3.5-5.0); Alkaline Phosphatase 139 U/L (38-126); Amylase 91 U/L (30-110); Anion Gap 7 mmol/L; Blood Urea Nitrogen 21 mg/dL (9-20); Calcium 8.5 mg/dL (8.4-10.2); Carbon Dioxide 20 mmol/L (22-30); Chloride 108 mmol/L (98-107); Glucose 113 mg/dL (74-99); Lipase 65 U/L (23-300); Non-African American GFR(CKD) 77 (>60 ml/min/1.73 sqM); Potassium 4.1 mmol/L (3.5-5.1); Sodium 135 mmol/L (137-145); Total Bilirubin 0.7 mg/dL (0.2-1.3); Total Protein 5.8 g/dL (6.3-8.2)
[2024-05-07] MEDS: SODIUM CHLORIDE 0.9% 1,000 ML IV ONE ×2 (19:50→21:18)
--- NOTE | 2024-05-07 20:12 | XR ---
EXAMINATION TYPE: XR KUB DATE OF EXAM: 05/07/2024 8:08 PM CLINICAL INDICATION:Male, 58 years old with history of Abdominal pain; [facility] COMPARISON: None. TECHNIQUE: One radiographic view of the abdomen was obtained. FINDINGS: The bowel gas pattern is nonspecific without dilated loops of small or large bowel. There i s no evidence for organomegaly or pneumoperitoneum. The osseous structures are intact. No abnormal calcifications are present. Fecal material and gas are demonstrated throughout the colon and rectum, with mild stool burden. IMPRESSION: Nonspecific bowel gas pattern without radiographic evidence for acute process.
--- NOTE | 2024-05-07 20:48 | ED ---
General Adult HPI - General Chief complaint: Abdominal Pain Stated complaint: bowel blockage, abd pain Time Seen by Provider: 05/07/24 18:00 Source: patient, RN notes reviewed, old records reviewed Mode of arrival: ambulatory Limitations: no limitations - History of Present Illness Initial comments: This is a 58-year-old male who presents to the emergency department with a past medical history significant for rectal cancer patient states he has had this for about a year they have been doing radiation and chemotherapy and it is not getting smaller. Patient states he has pain that fluctuates from about a 4 to a 10 because he cannot have a bowel movement he has not had no bowel movement since Monday. Patient states currently he is a 4 out of 10 but earlier today it was a 10 out of 10. Patient states he would like to see a route cdl driver and may be a surgeon to see what the neck step is. Patient denies any vomiting but is very nauseous - Related Data Home Medications Medication Instructions Recorded Confirmed lisinopriL [Zestril] 10 mg PO QAM 12/19/16 04/30/24 Furosemide [Lasix] 20 mg PO 1900 09/25/17 04/30/24 Ibuprofen [Advil] 200 mg PO DAILY PRN 10/10/23 04/30/24 Ondansetron [Zofran] 1 tab PO QID PRN 11/29/23 04/30/24 traMADol HCL [Ultram ER] 1 tab PO BID 11/29/23 04/30/24 Potassium Chloride ER [K-Dur 20] 1 tab PO DAILY 04/30/24 04/30/24 Allergies Allergy/AdvReac Type Severity Reaction Status Date / Time tide detergent Allergy Rash/Hives Uncoded 05/07/24 17:59 ANTACIDS AdvReac Severe severe Uncoded 05/07/24 17:59 migraines Review of Systems ROS Statement: Those systems with pertinent positive or pertinent negative responses have been documented in the HPI. ROS Other: All systems not noted in ROS Statement are negative. Past Medical History Past Medical History: Cancer, Hyperlipidemia, Hypertension, Renal Disease Additional Past Medical History / Comment(s): "spot on my lung",colon CA dx Aug 2023-standing is paiful, chronic back pain,XR gel was being injected per kidney disease-3rd stage kidney failure-improve w/ gel no longer needing to use gel. History of Any Multi-Drug Resistant Organisms: None Reported Additional Past Surgical History / Comment(s): kidney stones removed 1986 & 2016, kidney cyst removed 2016 Past Anesthesia/Blood Transfusion Reactions: No Reported Reaction Additional Past Anesthesia/Blood Transfusion Reaction / Comment(s): no hx blood transfusion Past Psychological History: No Psychological Hx Reported Smoking Status: Current every day smoker Past Alcohol Use History: None Reported Past Drug Use History: Marijuana - Past Family History Father Family Medical History: No Reported History General Exam - General Exam Comments Initial Comments: GENERAL: Patient is well-developed and well-nourished. Patient is nontoxic and well-hydrated and is in mild distress. ENT: Neck is soft and supple. No significant lymphadenopathy is noted. Oropharynx is clear. Moist mucous membranes. Neck has full range of motion without eliciting any pain. EYES: The sclera were anicteric and conjunctiva were pink and moist. Extraocular movements were intact and pupils were equal round and reactive to light. Eyelids were unremarkable. PULMONARY: Unlabored respirations. Good breath sounds bilaterally. No audible rales rhonchi or wheezing was noted. CARDIOVASCULAR: There is a regular rate and rhythm without any murmurs gallops or rubs. ABDOMEN: Mild left and right lower quadrant pain SKIN: Skin is clear with no lesions or rashes and otherwise unremarkable. NEUROLOGIC: Patient is alert and oriented x3. Cranial nerves II through XII are grossly intact. Motor and sensory are also intact. Normal speech, volume and content. Symmetrical smile. MUSCULOSKELETAL: Normal extremities with adequate strength and full range of motion. LYMPHATICS: No significant lymphadenopathy is noted PSYCHIATRIC: Normal psychiatric evaluation. Limitations: no limitations Course Vital Signs 05/07/24 17:55 Temperature 98.3 F Pulse Rate 133 H Respiratory 18 Rate Blood Pressure 124/72 O2 Sat by Pulse 99 Oximetry Medical Decision Making - Medical Decision Making Was pt. sent in by a medical professional or institution (, PA, SOFTWARE IMPLEMENTATION PROJECT MANAGER, urgent care, hospital, or snf...) When possible be specific @ -No Did you speak to anyone other than the patient for history (EMS, parent, family, police, friend...)? What history was obtained from this source @ -No Did you review nursing and triage notes (agree or disagree)? Why? @ -I reviewed and agree with nursing and triage notes Were old charts reviewed (outside hosp., previous admission, EMS record, old EKG, old radiological studies, urgent care reports/EKG's, snf records)? Report findings @ -No old charts were reviewed Differential Diagnosis (chest pain, altered mental status, abdominal pain women, abdominal pain men, vaginal bleeding, weakness, fever, dyspnea, syncope, headache, dizziness, GI bleed, back pain, seizure, CVA, palpatations, mental health, musculoskeletal)? @ -Differential Abdominal Pain Men: Appendicitis, cholecystitis, diverticulosis, ischemic bowel, pancreatitis, hepatitis, UTI, gastroenteritis, AAA, incarcerated hernia, bowel obstruction, constipation, inflammatory bowel, hepatitis, peptic ulcer disease, splenic infarction, perforated viscus, testicular torsion, this is not meant to be an all-inclusive list EKG interpreted by me (3pts min.). @ -As above X-rays interpreted by me (1pt min.). @ -KUB shows no acute abnormality CT interpreted by me (1pt min.). @ -None done U/S interpreted by me (1pt. min.). @ -None done What testing was considered but not performed or refused? (CT, X-rays, U/S, labs)? Why? @ -None What meds were considered but not given or refused? Why? @ -None Did you discuss the management of the patient with other professionals (professionals i.e. , PA, SOFTWARE IMPLEMENTATION PROJECT MANAGER, lab, RT, psych nurse, social services coordinator, preforming machine operator, teacher, registration officer, case finisher)? Give summary @ -I spoke with these treatments and hospitalist agreed admit the patient I wrote admitting orders Was smoking cessation discussed for >3mins.? @ -No Was critical care preformed (if so, how long)? @ -No Were there social determinants of health that impacted care today? How? (Homelessness, low income, unemployed, alcoholism, drug addiction, transportation, low edu. Level, literacy, decrease access to med. care, long term, rehab)? @ -No Was there de-escalation of care discussed even if they declined (Discuss DNR or withdrawal of care, Hospice)? DNR status @ -No What co-morbidities impacted this encounter? (DM, HTN, Smoking, COPD, CAD, Cancer, CVA, ARF, Chemo, Hep., AIDS, mental health diagnosis, sleep apnea, morbid obesity)? @ -None Was patient admitted / discharged? Hospital course, mention meds given and route, prescriptions, significant lab abnormalities, going to OR and other pertinent info. @ -I went back in and interviewed the patient he states that he has had pain in the emergency department that reaches 10 out of 10 but right now is about a 4- 10. Patient states he does not feel comfortable going home because the pain will come back and will be excruciating. Patient would like to see if he could see Dr. Hidalgo and his surgeon. I spoke with admission hospitalist and they agreed admit the patient Undiagnosed new problem with uncertain prognosis? @ -No Drug Therapy requiring intensive monitoring for toxicity (Heparin, Nitro, Insulin, Cardizem)? @ -No Were any procedures done? @ -No Diagnosis/symptom? @ -Abdominal pain Acute, or Chronic, or Acute on Chronic? @ -Acute Uncomplicated (without systemic symptoms) or Complicated (systemic symptoms)? @ -Complicated Side effects of treatment? @ -No Exacerbation, Progression, or Severe Exacerbation? @ -No Poses a threat to life or bodily function? How? (Chest pain, [place], [place], pneumonia, PE, COPD, DKA, ARF, appy, cholecystitis, CVA, Diverticulitis, Homicidal, Suicidal, threat to staff... and all critical care pts) @ -No Diagnosis/symptom? @ -Rectal cancer history Acute, or Chronic, or Acute on Chronic? @ -Acute Uncomplicated (without systemic symptoms) or Complicated (systemic symptoms)? @ -Complicated Side effects of treatment? @ -None Exacerbation, Progression, or Severe Exacerbation] @ -No Poses a threat to life or bodily function? @ -No - Lab Data Result diagrams: 05/07/24 19:10 05/07/24 19:10 Lab Results 05/07/24 05/07/24 05/07/24 Range/Units 19:10 19:10 19:10 WBC 5.3 (3.8-10.6) k/uL RBC 4.80 (4.30-5.90) m/uL Hgb 15.3 (13.0-17.5) gm/dL Hct 46.0 (39.0-53.0) % MCV 95.8 (80.0-100.0) fL MCH 31.8 (25.0-35.0) pg MCHC 33.2 (31.0-37.0) g/dL RDW 16.9 H (11.5-15.5) % Plt Count 265 (150-450) k/uL MPV 8.3 Neutrophils % 79 % Lymphocytes % 11 % Monocytes % 6 % Eosinophils % 1 % Basophils % 0 % Neutrophils # 4.2 (1.3-7.7) k/uL Lymphocytes # 0.6 L (1.0-4.8) k/uL Monocytes # 0.3 (0-1.0) k/uL Eosinophils # 0.0 (0-0.7) k/uL Basophils # 0.0 (0-0.2) k/uL Anisocytosis Slight Sodium 135 L (137-145) mmol/L Potassium 4.1 (3.5-5.1) mmol/L Chloride 108 H (98-107) mmol/L Carbon Dioxide 20 L (22-30) mmol/L Anion Gap 7 mmol/L BUN 21 H (9-20) mg/dL Creatinine 1.05 (0.66-1.25) mg/dL Est GFR (CKD-EPI)AfAm 89 (>60 ml/min/1.73 sqM) Est GFR (CKD-EPI)NonAf 77 (>60 ml/min/1.73 sqM) Glucose 113 H (74-99) mg/dL Plasma Lactic Acid Kenny 1.2 (0.7-2.0) mmol/L Calcium 8.5 (8.4-10.2) mg/dL Total Bilirubin 0.7 (0.2-1.3) mg/dL AST 24 (17-59) U/L ALT 10 (4-49) U/L Alkaline Phosphatase 139 H (38-126) U/L Total Protein 5.8 L (6.3-8.2) g/dL Albumin 3.3 L (3.5-5.0) g/dL Amylase 91 (30-110) U/L Lipase 65 (23-300) U/L Disposition Clinical Impression: Abdominal pain, History of rectal cancer Disposition: ADMITTED IP TO THIS HOSP Referrals: Maria T Lopez [Primary Care Provider] - 1-2 days Time of Disposition: 20:48
[2024-05-07] MEDS: KETOROLAC 15 MG/ML 1 ML VIAL IVP STA (21:18)
[2024-05-08] MEDS: KETOROLAC 15 MG/ML 1 ML VIAL IVP SCH (00:36)
[2024-05-08 02:06] VITALS: RESP 20
[2024-05-08] MEDS: polyethylene glycoL 3350 17 GM POWD.PACK PO SCH (09:15)
[2024-05-08] MEDS ORDERED: CYCLOBENZAPRINE 10 MG TAB PO PRN (10:27)
[2024-05-08] MEDS ORDERED: HYDROcodone/APAP 7.5-325MG 1 EACH TAB PO PRN (10:27)
[2024-05-08] MEDS ORDERED: IOPAMIDOL CONTRAST (ORAL USE) VIAL PO PRN (10:29)
--- NOTE | 2024-05-08 12:07 | P.CONS ---
History of Present Illness - Reason for Consult Consult date: 05/08/24 Rectal cancer Requesting physician: Ubaldo Novoa - Chief Complaint Abdominal pain, constipation - History of Present Illness This is a pleasant 58-year-old male diagnosed with metastatic rectal cancer in April [address] Figueredo and Dr. Larose. He had presented to the emergency department with complaints of abdominal pain and no bowel movement for 4 days duration. States he has been undergoing chemo and radiation. He has 1 more chemo treatment and radiation is done. He states neck step is to discuss rectal surgery. He states that normal bowel movements are 1-2 a day nonbloody however the last 4 days he was unable to have a bowel movement. He takes a stool softener daily but no laxatives. Patient states he gave him something through his IV to have have a bowel movement and he had 3 bowel movements yesterday evening. He states abdominal pain and distention is improved. No nausea or vomiting. Stool was nonbloody. Labs were unremarkable. Review of Systems REVIEW OF SYSTEMS: CARDIOPULMONARY: No chest pain or shortness of breath. Gastrointestinal: Abdominal pain and bloating. No nausea or vomiting. No hem atemesis, coffee-ground emesis. No rectal bleeding, or melena. Constipation now resolved. GENITOURINARY: No dysuria or hematuria. MUSCULOSKELETAL: Reports normal range of motion. SKIN: No rashes. No jaundice. ENDOCRINE: No chills, fevers. No excessive weight gain or loss. No polydipsia or polyuria. PSYCHIATRIC: Unremarkable. NEUROLOGY: No change in mental status. Denies dizziness, headache. ENT: Vision unremarkable. CONSTITUTIONAL: No recent weight loss. No fever, chills, night sweats. Past Medical History Past Medical History: Cancer, Hyperlipidemia, Hypertension, Renal Disease Additional Past Medical History / Comment(s): "spot on my lung",colon CA dx Aug 2023-standing is paiful, chronic back pain,XR gel was being injected per kidney disease-3rd stage kidney failure-improve w/ gel no longer needing to use gel. N ext chemo is 05/13/24 History of Any Multi-Drug Resistant Organisms: None Reported Additional Past Surgical History / Comment(s): kidney stones removed 1986 & 2016, kidney cyst removed 2016 Past Anesthesia/Blood Transfusion Reactions: No Reported Reaction Additional Past Anesthesia/Blood Transfusion Reaction / Comm: no hx blood transfusion Smoking Status: Current every day smoker - Past Family History Father Family Medical History: No Reported History Medications and Allergies Home Medications Medication Instructions Recorded Confirmed Type Furosemide [Lasix] 20 mg PO HS 09/25/17 05/07/24 History Potassium Chloride ER [K-Dur 20] 1 tab PO DAILY 04/30/24 05/07/24 History Cyclobenzaprine [Flexeril] 10 mg PO TID PRN 05/07/24 05/07/24 History Gabapentin [Neurontin] 300 mg PO BID 05/07/24 05/07/24 History HYDROcodone/APAP 7.5-325MG [[place] 1 tab PO Q6H PRN 05/07/24 05/07/24 History 7.5-325] Nystatin 100,000Unit/gm Cream 1 applic TOPICAL BID 05/07/24 05/07/24 History [Mycostatin Cream] Tamsulosin [Flomax] 0.4 mg PO DAILY 05/07/24 05/07/24 History lisinopriL [Zestril] 10 mg PO DAILY 05/07/24 05/07/24 History Allergies Allergy/AdvReac Type Severity Reaction Status Date / Time tide detergent Allergy Rash/Hives Uncoded 05/07/24 20:48 ANTACIDS AdvReac Severe severe Uncoded 05/07/24 20:48 migraines Physical Exam Vitals: Vital Signs Temp Pulse Pulse Resp BP BP Pulse Ox 05/08/24 07:16 97.9 F 87 20 147/96 98 05/08/24 02:00 97.8 F 89 20 136/76 97 05/07/24 21:53 97.6 F 88 18 139/84 94 L 05/07/24 21:45 18 05/07/24 20:59 100 17 126/95 98 05/07/24 17:55 98.3 F 133 H 18 124/72 99 Intake and Output 05/07/24 05/08/24 05/08/24 22:59 06:59 14:59 Other: # Voids 2 # Bowel Movements 3 Weight 72.575 kg General appearance: The patient is alert, oriented, appears in no acute distress. HET: Head is normocephalic and atraumatic. Conjunctiva pink. Sclera anicteric. Neck: Supple without lymphadenopathy. Trachea midline. Heart: Regular. Lungs: Equal expansion, normal respiratory effort. Abdomen: Soft, low abdominal tenderness with palpation, nondistended. Skin: No rashes. No jaundice. Extremities: Normal skin color and turgor. No pedal edema. Neurological: No focal deficits. Alert and oriented x3. Results CBC & Chem 7: 05/07/24 19:10 05/07/24 19:10 Labs: Abnormal Lab Results - Last 24 Hours (Table) 05/07/24 05/07/24 Range/Units 19:10 19:10 RDW 16.9 H (11.5-15.5) % Lymphocytes # 0.6 L (1.0-4.8) k/uL Sodium 135 L (137-145) mmol/L Chloride 108 H (98-107) mmol/L Carbon Dioxide 20 L (22-30) mmol/L BUN 21 H (9-20) mg/dL Glucose 113 H (74-99) mg/dL Alkaline Phosphatase 139 H (38-126) U/L Total Protein 5.8 L (6.3-8.2) g/dL Albumin 3.3 L (3.5-5.0) g/dL Comments: KUB x-ray reports nonspecific bowel gas pattern without radiographic evidence for acute process Assessment and Plan (1) History of rectal cancer Narrative/Plan: 58-year-old male with history of metastatic rectal cancer being followed with Dr. Figueredo and Dr. Larose currently undergoing chemotherapy and post radiation therapy presenting for complaints of abdominal pain, distention and constipation. He reported no bowel movement for 4 days duration however yesterday evening he had 3 bowel movements. Constipation resolved. Abdominal pain resolved, no nausea or vomiting. Recommend continuing follow-up care with oncology and patient's general surgeon Dr. Larose. No further workup indicated by gastroenterology Current Visit: Yes Status: Acute Code(s): Z85.048 - PRSNL HX OF MALIG NEOPLM OF RECTUM, RECTOSIG JUNCT, AND ANUS SNOMED Code(s): 969432170 (2) Constipation Narrative/Plan: Constipation is currently resolved. Recommend MiraLAX daily, titrate as needed for regular bowel regimen. Current Visit: Yes Status: Acute Code(s): K59.00 - CONSTIPATION, UNSPECIFIED SNOMED Code(s): 95322526 (3) Abdominal pain Current Visit: Yes Status: Acute Code(s): R10.9 - UNSPECIFIED ABDOMINAL PAIN SNOMED Code(s): 01187001 Plan: 1. Continue symptomatic and supportive care 2. Full liquid diet and advance as tolerated 3. MiraLAX daily, titrate as needed to have daily bowel movements 4. Continue with recommendations from oncology 5. Continue with recommendations from general surgery 6. Patient is to follow with his general surgeon Dr. Larose once completing chemotherapy 7. No further workup indicated by gastroenterology 8. Rest of medical management per primary medical team Thank you for this consultation, we will continue to follow. Dr. Ruby Mcleod I agree with the dictator's note, documented as a scribe by Divya Dacosta.
--- NOTE | 2024-05-08 12:13 | P.GSCN ---
History of Present Illness Consult date: 05/08/24 History of present illness: CHIEF COMPLAINT: Abdominal pain and rectal pain HISTORY OF PRESENT ILLNESS: This is a 58-year-old male with a known history of metastatic rectal cancer that was diagnosed in August 2023. He has undergone chemo and radiation treatment. Radiation ended in October. Last chemotherapy was last week Monday. Patient reports it has been 4 days since his last bowel movement and he was starting to have more rectal pain and abdominal pain. He denies any nausea or vomiting. Patient follows with his surgeon Dr. Larose. She is the one that placed his port. And is following him in regards to his bowel resection. KUB x-ray was completed and reported nonspecific bowel gas pattern. Patient reports that they gave him medication in the ER and since then he did have a large bowel movement. His abdominal pain and rectal pain had improved. He reports the rectal discomfort is back to his usual baseline rectal discomfort. He is tolerating the full liquids. He wants to go home today. PAST MEDICAL HISTORY: See list. PAST SURGICAL HISTORY: See list. MEDICATIONS: See list. ALLERGIES: See list. SOCIAL HISTORY: No illicit drug use. REVIEW OF SYSTEMS: CONSTITUTIONAL: Denies fever or chills. HEENT: Denies blurred vision, vision changes, or eye pain. Denies hemoptysis ENDOCRINE: Denies heat or cold intolerance. CARDIOVASCULAR: Denies chest pain or pressure. RESPIRATORY: No shortness of breath. GASTROINTESTINAL: Please refer to HPI NEURO: Denies history of seizures. PSYCH: No depression or suicidal ideation HEMATOLOGIC: Denies bleeding disorders. LYMPHATIC: The patient denies any lumps and bumps around the neck. GENITOURINARY: Denies any blood in urine or increased urinary frequency. MUSCULOSKELETAL: Denies myalgias. Denies joint swelling. Denies decreased range of motion beyond patients baseline. SKIN: Denies pruitis. Denies rash. PHYSICAL EXAM: VITAL SIGNS: Reviewed GENERAL: Well-developed in no acute distress. HEENT: No sclera icterus. Extraocular movements grossly intact. Moist buccal mucosa. Head is atraumatic, normocephalic. Hears conversational speech. No nasal drainage. NECK: Supple without lymphadenopathy. CHEST: Non-labored respirations and equal bilateral excursions. CARDIOVASCULAR: Palpable 2+ radial pulses. ABDOMEN: Soft. Nondistended. Nontender MUSCULOSKELETAL: No clubbing or cyanosis. NEUROLOGIC: No focal or lateralizing signs. Cranial nerves II through XII grossly intact. PSYCH: Appropriate affect. Alert and oriented to person, place and time. SKIN: Well perfused. Good skin turgor. LABORATORY DATA: WBC 5.3 Hgb 15.3 platelets 265 Sodium is 135 potassium 4.1 creatinine 1.05 IMAGING: KUB x-ray nonspecific bowel gas pattern evidence of acute process. Fecal material and gas are demonstrated throughout the colon and rectum with mild stool burden. ASSESSMENT: 1. Constipation 2. History of metastatic rectal cancer PLAN: -Follow-up on CT scan abdomen and pelvis ordered by medicine service -Continue a good bowel regimen -Encourage patient to ambulate -Continue full liquid diet Physician [employer] Gr[employer] Operator note has been reviewed by physician. Signing provider agrees with the documented findings, assessment, and plan of care. Past Medical History Past Medical History: Cancer, Hyperlipidemia, Hypertension, Renal Disease Additional Past Medical History / Comment(s): "spot on my lung",colon CA dx Aug 2023-standing is paiful, chronic back pain,XR gel was being injected per kidney disease-3rd stage kidney failure-improve w/ gel no longer needing to use gel. Next chemo is 05/13/24 History of Any Multi-Drug Resistant Organisms: None Reported Additional Past Surgical History / Comment(s): kidney stones removed 1986 & 2016, kidney cyst removed 2016 Past Anesthesia/Blood Transfusion Reactions: No Reported Reaction Additional Past Anesthesia/Blood Transfusion Reaction / Comm: no hx blood transfusion Smoking Status: Current every day smoker - Past Family History Father Family Medical History: No Reported History Medications and Allergies Home Medications Medication Instructions Recorded Confirmed Type Furosemide [Lasix] 20 mg PO HS 09/25/17 05/07/24 History Potassium Chloride ER [K-Dur 20] 1 tab PO DAILY 04/30/24 05/07/24 History Cyclobenzaprine [Flexeril] 10 mg PO TID PRN 05/07/24 05/07/24 History Gabapentin [Neurontin] 300 mg PO BID 05/07/24 05/07/24 History HYDROcodone/APAP 7.5-325MG [[place] 1 tab PO Q6H PRN 05/07/24 05/07/24 History 7.5-325] Nystatin 100,000Unit/gm Cream 1 applic TOPICAL BID 05/07/24 05/07/24 History [Mycostatin Cream] Tamsulosin [Flomax] 0.4 mg PO DAILY 05/07/24 05/07/24 History lisinopriL [Zestril] 10 mg PO DAILY 05/07/24 05/07/24 History Allergies Allergy/AdvReac Type Severity Reaction Status Date / Time tide detergent Allergy Rash/Hives Uncoded 05/07/24 20:48 ANTACIDS AdvReac Severe severe Uncoded 05/07/24 20:48 migraines Surgical - Exam Vital Signs Temp Pulse Resp BP Pulse Ox 98.3 F 133 H 18 124/72 99 05/07/24 17:55 05/07/24 17:55 05/07/24 17:55 05/07/24 17:55 05/07/24 17:55 Results - Labs 05/07/24 19:10 05/07/24 19:10 Abnormal Lab Results - Last 24 Hours (Table) 05/07/24 05/07/24 Range/Units 19:10 19:10 RDW 16.9 H (11.5-15.5) % Lymphocytes # 0.6 L (1.0-4.8) k/uL Sodium 135 L (137-145) mmol/L Chloride 108 H (98-107) mmol/L Carbon Dioxide 20 L (22-30) mmol/L BUN 21 H (9-20) mg/dL Glucose 113 H (74-99) mg/dL Alkaline Phosphatase 139 H (38-126) U/L Total Protein 5.8 L (6.3-8.2) g/dL Albumin 3.3 L (3.5-5.0) g/dL Diabetes panel 05/07/24 Range/Units 19:10 Sodium 135 L (137-145) mmol/L Potassium 4.1 (3.5-5.1) mmol/L Chloride 108 H (98-107) mmol/L Carbon Dioxide 20 L (22-30) mmol/L BUN 21 H (9-20) mg/dL Creatinine 1.05 (0.66-1.25) mg/dL Glucose 113 H (74-99) mg/dL Calcium 8.5 (8.4-10.2) mg/dL AST 24 (17-59) U/L ALT 10 (4-49) U/L Alkaline Phosphatase 139 H (38-126) U/L Total Protein 5.8 L (6.3-8.2) g/dL Albumin 3.3 L (3.5-5.0) g/dL Calcium panel 05/07/24 Range/Units 19:10 Calcium 8.5 (8.4-10.2) mg/dL Albumin 3.3 L (3.5-5.0) g/dL Pituitary panel 05/07/24 Range/Units 19:10 Sodium 135 L (137-145) mmol/L Potassium 4.1 (3.5-5.1) mmol/L Chloride 108 H (98-107) mmol/L Carbon Dioxide 20 L (22-30) mmol/L BUN 21 H (9-20) mg/dL Creatinine 1.05 (0.66-1.25) mg/dL Glucose 113 H (74-99) mg/dL Calcium 8.5 (8.4-10.2) mg/dL Adrenal panel 05/07/24 Range/Units 19:10 Sodium 135 L (137-145) mmol/L Potassium 4.1 (3.5-5.1) mmol/L Chloride 108 H (98-107) mmol/L Carbon Dioxide 20 L (22-30) mmol/L BUN 21 H (9-20) mg/dL Creatinine 1.05 (0.66-1.25) mg/dL Glucose 113 H (74-99) mg/dL Calcium 8.5 (8.4-10.2) mg/dL Total Bilirubin 0.7 (0.2-1.3) mg/dL AST 24 (17-59) U/L ALT 10 (4-49) U/L Alkaline Phosphatase 139 H (38-126) U/L Total Protein 5.8 L (6.3-8.2) g/dL Albumin 3.3 L (3.5-5.0) g/dL
[2024-05-08 12:23] VITALS: BP 157/85; PULSE 86; TEMP 98.2
[2024-05-08] MEDS: GABAPENTIN 300 MG CAP PO SCH (12:52)
--- NOTE | 2024-05-08 13:30 | P.HPIM ---
History of Present Illness H&P Date: 05/08/24 History of present illness; patient is a 58-year-old gentleman past medical history significant for rectal cancer who presented to ER because of abdominal pain. Patient is being seen outpatient by hematology oncology and is currently undergoing chemotherapy and radiation. Patient states that he is having abdominal pain for the last few days. Patient also complaining of constipation, has not had a bowel movement in the last 4 to 5 days. Denies any nausea or vomiting. there is no complaint of chest pain or shortness of breath. Denies any lightheadedness or dizziness. Denies lethargy or weakness. Initial lab work done in the ER showed WBC 5.3, hemoglobin 4.0, platelet count 265, sodium 135, potassium 4.1, BUN 21, creatinine 1.05, glucose 113, alk phos 139, total protein 5.8 X-ray KUB done showed nonspecific bowel gas pattern without radiographic evidence of acute process Patient admitted to internal medicine service REVIEW OF SYSTEMS: CONSTITUTIONAL: No fever, no malaise, no fatigue. HEENT: No recent visual problems or hearing problems. Denied any sore throat. CARDIOVASCULAR: No chest pain, orthopnea, PND, no palpitations, no syncope. PULMONARY: No shortness of breath, no cough, no hemoptysis. GASTROINTESTINAL: As mentioned above NEUROLOGICAL: No headaches, no weakness, no numbness. HEMATOLOGICAL: Denies any bleeding or petechiae. GENITOURINARY: Denies any burning micturition, frequency, or urgency. MUSCULOSKELETAL/RHEUMATOLOGICAL: Denies any joint pain, swelling, or any muscle pain. ENDOCRINE: Denies any polyuria or polydipsia. The rest of the 14-point review of systems is negative. PHYSICAL EXAMINATION: GENERAL: The patient is alert and oriented x3, not in any acute distress. Well developed, well nourished. HEENT: Pupils are round and equally reacting to light. EOMI. No scleral icterus. No conjunctival pallor. Normocephalic, atraumatic. No pharyngeal erythema. No thyromegaly. CARDIOVASCULAR: S1 and S2 present. No murmurs, rubs, or gallops. PULMONARY: Chest is clear to auscultation, no wheezing or crackles. ABDOMEN: Soft, nontender, nondistended, normoactive bowel sounds. No palpable organomegaly. MUSCULOSKELETAL: No joint swelling or deformity. EXTREMITIES: No cyanosis, clubbing, or pedal edema. NEUROLOGICAL: Gross neurological examination did not reveal any focal deficits. SKIN: No rashes. Assessment and plan Abdominal pain Constipation Hyponatremia History of rectal cancer Monitor vital signs Monitor CBC Monitor CMP Continue IV fluids Continue antiemetics Start IV Protonix Order CT abdomin and pelvis GI consulted General surgery consulted Hematology oncology consulted Labs and medication were reviewed.. Continue same treatment. Continue with symptomatic treatment. Resume home medication. Monitor labs and vitals. DVT and GI prophylaxis. Further recommendations as per clinical course of the patient Dictation was produced using [employer] dictation software. please excuse any grammatical, word or spelling errors. Past Medical History Past Medical History: Cancer, Hyperlipidemia, Hypertension, Renal Disease Additional Past Medical History / Comment(s): "spot on my lung",colon CA dx Aug 2023-standing is paiful, chronic back pain,XR gel was being injected per kidney disease-3rd stage kidney failure-improve w/ gel no longer needing to use gel. Next chemo is 05/13/24 History of Any Multi-Drug Resistant Organisms: None Reported Additional Past Surgical History / Comment(s): kidney stones removed 1986 & 2016, kidney cyst removed 2016 Past Anesthesia/Blood Transfusion Reactions: No Reported Reaction Additional Past Anesthesia/Blood Transfusion Reaction / Comment(s): no hx blood transfusion Smoking Status: Current every day smoker - Past Family History Father Family Medical History: No Reported History Medications and Allergies Home Medications Medication Instructions Recorded Confirmed Type Furosemide [Lasix] 20 mg PO HS 09/25/17 05/07/24 History Potassium Chloride ER [K-Dur 20] 1 tab PO DAILY 04/30/24 05/07/24 History Cyclobenzaprine [Flexeril] 10 mg PO TID PRN 05/07/24 05/07/24 History Gabapentin [Neurontin] 300 mg PO BID 05/07/24 05/07/24 History HYDROcodone/APAP 7.5-325MG [[place] 1 tab PO Q6H PRN 05/07/24 05/07/24 History 7.5-325] Nystatin 100,000Unit/gm Cream 1 applic TOPICAL BID 05/07/24 05/07/24 History [Mycostatin Cream] Tamsulosin [Flomax] 0.4 mg PO DAILY 05/07/24 05/07/24 History lisinopriL [Zestril] 10 mg PO DAILY 05/07/24 05/07/24 History Allergies Allergy/AdvReac Type Severity Reaction Status Date / Time tide detergent Allergy Rash/Hives Uncoded 05/07/24 20:48 ANTACIDS AdvReac Severe severe Uncoded 05/07/24 20:48 migraines Physical Exam Vitals: Vital Signs Temp Pulse Pulse Resp BP BP Pulse Ox 05/08/24 07:16 97.9 F 87 20 147/96 98 05/08/24 02:00 97.8 F 89 20 136/76 97 05/07/24 21:53 97.6 F 88 18 139/84 94 L 05/07/24 21:45 18 05/07/24 20:59 100 17 126/95 98 05/07/24 17:55 98.3 F 133 H 18 124/72 99 Intake and Output 05/07/24 05/08/24 05/08/24 22:59 06:59 14:59 Other: # Voids 2 # Bowel Movements 3 Weight 72.575 kg Results CBC & Chem 7: 05/07/24 19:10 05/07/24 19:10 Labs: Abnormal Lab Results - Last 24 Hours (Table) 05/07/24 05/07/24 Range/Units 19:10 19:10 RDW 16.9 H (11.5-15.5) % Lymphocytes # 0.6 L (1.0-4.8) k/uL Sodium 135 L (137-145) mmol/L Chloride 108 H (98-107) mmol/L Carbon Dioxide 20 L (22-30) mmol/L BUN 21 H (9-20) mg/dL Glucose 113 H (74-99) mg/dL Alkaline Phosphatase 139 H (38-126) U/L Total Protein 5.8 L (6.3-8.2) g/dL Albumin 3.3 L (3.5-5.0) g/dL Thrombosis Risk Factor Assmnt - Choose All That Apply Any of the Below Risk Factors Present?: Yes Each Factor Represents 1 point: Age 41-60 years Each Risk Factor Represents 2 Points: Malignancy Thrombosis Risk Factor Assessment Total Risk Factor Score: 3 Thrombosis Risk Factor Assessment Level: Moderate Risk
[2024-05-08 13:42] LABS: Anisocytosis Slight; Basophils % (A) 0 %; Eosinophils % (A) 1 %; HCT 39.2 % (39.0-53.0); Lymphocytes # (A) 0.5 k/uL (1.0-4.8); Lymphocytes % (A) 13 %; MCH 32.2 pg (25.0-35.0); MCHC 33.1 g/dL (31.0-37.0); MCV 97.3 fL (80.0-100.0); Macrocytosis Slight; Mean Platelet Volume 8.1; Monocytes # (A) 0.3 k/uL (0-1.0); Monocytes % (A) 8 %; Neutrophils # (A) 2.7 k/uL (1.3-7.7); Neutrophils % (A) 76 %; Platelet Count 187 k/uL (150-450); RBC 4.03 m/uL (4.30-5.90); RDW 16.8 % (11.5-15.5); WBC 3.6 k/uL (3.8-10.6)
[2024-05-08 13:53] LABS: ALT 9 U/L (4-49); AST 21 U/L (17-59); African American GFR (CKD) >90 (>60 ml/min/1.73 sqM); Albumin 2.5 g/dL (3.5-5.0); Albumin/Globulin Ratio 1.1; Alkaline Phosphatase 111 U/L (38-126); Anion Gap 2 mmol/L; Blood Urea Nitrogen 22 mg/dL (9-20); Calcium 7.7 mg/dL (8.4-10.2); Carbon Dioxide 21 mmol/L (22-30); Chloride 111 mmol/L (98-107); Globulin 2.2 g/dL; Glucose 117 mg/dL (74-99); Non-African American GFR(CKD) >90 (>60 ml/min/1.73 sqM); Potassium 3.6 mmol/L (3.5-5.1); Sodium 134 mmol/L (137-145); Total Bilirubin 0.4 mg/dL (0.2-1.3); Total Protein 4.7 g/dL (6.3-8.2)
[2024-05-09] MEDS ORDERED: TAMSULOSIN 0.4 MG CAP.ER.24H PO SCH (09:00)
[2024-05-09] MEDS ORDERED: POTASSIUM CHLORIDE ER 20 MEQ TAB.ER PO SCH (09:00)
[2024-05-09] MEDS ORDERED: lisinopriL 10 MG TAB PO SCH (09:00)
--- NOTE | 2024-05-10 13:56 | P.DS ---
Providers Date of admission: 05/07/24 20:50 Expected date of discharge: 05/08/24 Attending physician: Meena Abreu Consults: 05/07/24 20:49 Consult Physician Urgent Consulting Provider: Swati Wharton Consult Reason/Comments: Abdominal pain Do you want consulting provider notified?: Yes Consult Physician Urgent Consulting Provider: Alyce Mcleod Consult Reason/Comments: Rectal cancer Do you want consulting provider notified?: Yes 05/07/24 20:52 Consult Physician Urgent Consulting Provider: Chris Figueredo Consult Reason/Comments: History of rectal cancer Do you want consulting provider notified?: Yes Primary care physician: [facility] Course: Discharge diagnoses; Abdominal pain Constipation Hyponatremia History of rectal cancer Hospital course; patient is a 58-year-old gentleman past medical history significant for rectal cancer who presented to ER because of abdominal pain. Patient is being seen outpatient by hematology oncology and is currently undergoing chemotherapy and radiation. Patient states that he is having abdominal pain for the last few days. Patient also complaining of constipation, has not had a bowel movement in the last 4 to 5 days. Denies any nausea or vomiting. there is no complaint of chest pain or shortness of breath. Denies any lightheadedness or dizziness. Denies lethargy or weakness. Initial lab work done in the ER showed WBC 5.3, hemoglobin 4.0, platelet count 265, sodium 135, potassium 4.1, BUN 21, creatinine 1.05, glucose 113, alk phos 139, total protein 5.8 X-ray KUB done showed nonspecific bowel gas pattern without radiographic evidence of acute process Patient admitted to internal medicine service Patient abdominal pain and constipation has resolved. Patient was eval by GI, surgery, they cleared the patient for discharge. Patient to follow-up outpatient with hematology oncology PHYSICAL EXAMINATION: GENERAL: The patient is alert and oriented x3, not in any acute distress. Well d eveloped, well nourished. HEENT: Pupils are round and equally reacting to light. EOMI. No scleral icterus. No conjunctival pallor. Normocephalic, atraumatic. No pharyngeal erythema. No thyromegaly. CARDIOVASCULAR: S1 and S2 present. No murmurs, rubs, or gallops. PULMONARY: Chest is clear to auscultation, no wheezing or crackles. ABDOMEN: Soft, nontender, nondistended, normoactive bowel sounds. No palpable organomegaly. MUSCULOSKELETAL: No joint swelling or deformity. EXTREMITIES: No cyanosis, clubbing, or pedal edema. NEUROLOGICAL: Gross neurological examination did not reveal any focal deficits. SKIN: No rashes. Dictation was produced using [employer] dictation software. please excuse any grammatical, word or spelling errors. Plan - Discharge Summary Discharge Rx Participant: No New Discharge Prescriptions: New polyethylene glycoL 3350 [Miralax] 17 gm PO DAILY PRN #30 packet PRN Reason: Constipation Continue Furosemide [Lasix] 20 mg PO HS Potassium Chloride ER [K-Dur 20] 1 tab PO DAILY Nystatin 100,000Unit/gm Cream [Mycostatin Cream] 1 applic TOPICAL BID Cyclobenzaprine [Flexeril] 10 mg PO TID PRN PRN Reason: Muscle Pain Gabapentin [Neurontin] 300 mg PO BID Tamsulosin [Flomax] 0.4 mg PO DAILY HYDROcodone/APAP 7.5-325MG [[place] 7.5-325] 1 tab PO Q6H PRN PRN Reason: Pain lisinopriL [Zestril] 10 mg PO DAILY Discharge Medication List Furosemide [Lasix] 20 mg PO HS 09/25/17 [History] Potassium Chloride ER [K-Dur 20] 1 tab PO DAILY 04/30/24 [History] Cyclobenzaprine [Flexeril] 10 mg PO TID PRN 05/07/24 [History] Gabapentin [Neurontin] 300 mg PO BID 05/07/24 [History] HYDROcodone/APAP 7.5-325MG [[place] 7.5-325] 1 tab PO Q6H PRN 05/07/24 [History] Nystatin 100,000Unit/gm Cream [Mycostatin Cream] 1 applic TOPICAL BID 05/07/24 [History] Tamsulosin [Flomax] 0.4 mg PO DAILY 05/07/24 [History] lisinopriL [Zestril] 10 mg PO DAILY 05/07/24 [History] polyethylene glycoL 3350 [Miralax] 17 gm PO DAILY PRN #30 packet 05/08/24 [Rx] Follow up Appointment(s)/Referral(s): Maria T Lopez [Primary Care Provider] - 05/17/24 9:30 am Patient Instructions/Handouts: Polyethylene Glycol 3350 (By mouth), Constipation (DC), Colorectal Cancer (DC) Activity/Diet/Wound Care/Special Instructions: Diet as tolerated Activity Limited until seen by Discharge Disposition: HOME SELF-CARE
== END 2024-05-08 16:06 | disposition home or self-care (01) ==
LOC: EC 17:29 → 5NMEDONC 20:50
PROVIDERS: ADMIT Hospitalist; ATTEND Hospitalist
DX: K59.00 Constipation, unspecified (principal); C20 Malignant neoplasm of rectum; E87.1 Hypo-osmolality and hyponatremia; Z91.048 Other nonmedicinal substance allergy status; F17.200 Nicotine dependence, unspecified, uncomplicated; Z79.899 Other long term (current) drug therapy; Z88.8 Allergy status to other drugs, medicaments and biological substances; Z92.3 Personal history of irradiation; Z92.21 Personal history of antineoplastic chemotherapy
CPT/HCPCS: 96376; 96361; 96374; 99285; 36415; 80053 ×2; 82150; 83605; 83690; 85025 ×2; 74018; G0378 ×2; J1885 ×2